=== PATIENT | female | born 1970 | race Caucasian/White ===

== ENCOUNTER 2020-05-22 06:12 | Day surgery (SDC) | payer MEDICAID, SELFPAY ==
[2020-05-20 16:47] LABS: HEMATOCRIT 36.6 % (36-48)
[2020-05-20 16:50] LABS: BASOPHILS % (AUTO) 0.3 % (0.0-2.0); EOSINOPHILS # (AUTO) 0.2 K/uL (0.0-0.4); EOSINOPHILS % (AUTO) 1.9 % (0.0-4.0); HEMOGLOBIN 12.4 g/dL (12.0-16.0); LYMPHOCYTES # (AUTO) 2.7 K/uL (1.0-5.5); LYMPHOCYTES % (AUTO) 25.5 % (20.5-51.5); MEAN CORPUSCULAR HEMOGLOBIN 30 pg (27-31); MEAN CORPUSCULAR HGB CONC 34 % (32-36); MEAN CORPUSCULAR VOLUME 88 fL (79.0-98.0); MONOCYTES # (AUTO) 0.5 K/uL (0.0-1.0); MONOCYTES % (AUTO) 4.3 % (1.7-9.3); NEUTROPHILS # (AUTO) 7.2 K/uL (1.8-7.7); PLATELET COUNT (AUTO) 266 K/uL (130-430); RED BLOOD CELL COUNT(AUTO) 4.19 MIL/uL (4.2-6.2); RED CELL DISTRIBUTION WIDTH 13.9 % (9.0-15.0); WHITE BLOOD COUNT (AUTO) 10.6 K/uL (4.8-10.8)
[2020-05-20 17:01] LABS: CALCIUM 9.1 mg/dL (8.4-11.0); POTASSIUM 4.5 mmol/L (3.5-5.1)
[2020-05-20 17:02] LABS: ALBUMIN 3.6 g/dL (3.4-4.8); CREATININE 0.98 mg/dL (0.55-1.30); TOTAL BILIRUBIN 0.2 mg/dL (0.0-1.0)
[~2020-05-22] VITALS: Ht 162.6 cm; Wt 104.3 kg
[2020-05-22 11:02] LABS: HCG,QUAL RESULT NEGATIVE (NEGATIVE)
[2020-05-22] MEDS ORDERED: KETOROLAC TROMETHAMINE 30 MG VIAL ONE (13:37)
[2020-05-22] MEDS ORDERED: LR 1,000 ML IV SCH (13:45)
[2020-05-22] MEDS ORDERED: ONDANSETRON HCL 4 MG/2 ML VIAL IVP PRN (13:45)
[2020-05-22] MEDS ORDERED: HYDROmorphone 1 MG INJ. 1 MG/ML AMPUL IVP PRN ×2 (13:45)
[2020-05-22] MEDS ORDERED: KETOROLAC TROMETHAMINE 30 MG VIAL IVP PRN ×3 (13:45)
[2020-05-22] MEDS: HYDROmorphone 1 MG INJ. 1 MG/ML AMPUL ONE ×2 (14:03→14:15)
[2020-05-22 16:00] VITALS: BP_SYST 104
== END 2020-05-22 16:00 | disposition home or self-care (01) ==
LOC: SMU 06:12 → SDS 06:12
PROVIDERS: ATTEND Obstetrics & Gynecology
DX: N92.0 Excessive and frequent menstruation with regular cycle (principal); Z20.828 Contact with and (suspected) exposure to other viral communicable diseases
CPT/HCPCS: 36415; 58558; 80053; 84703; 85025; 86886; 86900; 86901; 88305; 93005; J1170; J1885; U0003